=== PATIENT | male | born 1965 | race Caucasian/White ===

== ENCOUNTER 2021-01-14 10:15 | Emergency (ER) | payer OTHER ==
[~2021-01-14] VITALS: Ht 175.3 cm; Wt 99.8 kg
[2021-01-14 10:36] LABS: ABSOLUTE LYMPHOCYTES 1.3 thou/uL (0.8-5.3); ABSOLUTE MONOCYTES 0.5 thou/uL (0.0-1.2); ABSOLUTE NEUTROPHILS 2.9 thou/uL (1.6-8.1); BASOPHILS 0.6 %; EOSINOPHILS 0.2 %; HEMATOCRIT 43.7 % (42.0-52.0); HEMOGLOBIN 15.2 gm/dL (14.0-18.0); LYMPHOCYTES 27.9 %; MCH 30.1 pg (26.0-34.0); MCHC 34.7 g/dL (28.0-37.0); MCV 86.8 fL (80.0-100.0); MONOCYTES 11.3 %; MPV 9.2 fl. (7.2-11.1); NUCLEATED RBCS 0 /100WBC; PLATELET COUNT* 140 thou/uL (150-400); RBC 5.04 mil/uL (4.50-6.00); RDW-CV 12.5 % (10.5-14.5); WBC 4.8 thou/uL (4.0-11.0)
[2021-01-14 10:41] LABS: CALCIUM 8.3 mg/dL (8.5-10.1); CREATININE 1.1 mg/dL (0.6-1.3); POTASSIUM 4.4 mmol/L (3.5-5.1)
--- NOTE | 2021-01-14 11:04 | EKG ---
[place] [address] ELECTROCARDIOGRAM REPORT Name: INDIGOKISHA Mary Room: [facility]#: [id number] Admission: 01/14/21 Attend Phys: Discharge: Date of : 61 Date of Service: 01/14/21 1013 Report #: [id number] THIS REPORT FOR: //name// [facility] ED Test Date: 2021-01-14 Test Time: 10:13:28 Pat Name: KISHA SOOD Department: Room: Gender: Business Development Consultant: : [id number] Requested By: Benji Villalobos Order Number: [id number] MD: Marques Vernon Measurements Intervals [place] Rate: 92 P: 49 ME: 123 QRS: 22 QRSD: 101 T: 49 QT: 363 QTc: 450 Interpretive Statements Sinus rhythm Borderline low voltage, extremity leads Baseline wander in lead(s) V2 No previous ECG available for comparison Electronically Signed On 01-14-2021 11:04:34 CDT by Marques Vernon [email or web address] <ELECTRONICALLY SIGNED> By: Marques Vernon MD, [facility] 01/14/21 1104 1013 1013 Marques Vernon MD, [facility] /EPI
[2021-01-14] MEDS ORDERED: NORCO5 PO (13:05)
[2021-01-14] MEDS ORDERED: DECADRON4 MG PO (13:05)
[2021-01-14 13:22] VITALS: BP 124/80
== END 2021-01-14 13:23 | disposition home or self-care (01) ==
LOC: M.ERS 10:15
PROVIDERS: Emergency Medicine
DX: U07.1 COVID-19 (principal); F17.210 Nicotine dependence, cigarettes, uncomplicated; Z88.0 Allergy status to penicillin